=== PATIENT | female | born 1955 | race Caucasian/White ===

== ENCOUNTER 2020-03-28 13:28 | Outpatient (REF) | payer MEDICARE, MEDICAID, SELFPAY ==
--- NOTE | 2020-03-28 13:31 | XR_ITS ---
EXAMINATION: XR ABDOMEN COMPLETE CLINICAL INDICATION: Right upper quadrant pain COMPARISON: None TECHNIQUE: 2 views of the abdomen. FINDINGS: There is a nonspecific bowel gas pattern with scattered air-fluid levels in nondilated bowel. There is no evidence of free air. There are surgical clips in the right upper quadrant from previous cholecystectomy. There are no calcifications. There are degenerative changes of the lower lumbar spine. XR/XR abdomen 3V IMPRESSION: Nonspecific bowel gas pattern with air-fluid levels in nondilated small and large bowel.
== END 2020-03-28 13:29 | disposition home or self-care (01) ==
LOC: HO.XRAY 13:28
PROVIDERS: PCP Internal Medicine; Visit Provider Nurse Practitioner Family
DX: R10.11 Right upper quadrant pain (principal)
CPT/HCPCS: 74021

== ENCOUNTER 2020-03-29 15:21 | Emergency (ER) | payer MEDICARE, MEDICAID, SELFPAY ==
[2020-03-29] VITALS (7 sets, daily range): BP systolic 107–136; BP diastolic 58–82; PULSE 90–100; RESP 16–20; TEMP 37; O2SAT 94–100; BMI 30.7
--- NOTE | 2020-03-29 | ECG_ITS ---
Test Reason : SYNCOPE Blood Pressure : / mmHG Vent. Rate : 092 BPM Atrial Rate : 092 BPM P-R Int : 152 ms QRS Dur : 084 ms QT Int : 372 ms P-R-T Axes : 037 039 040 degrees QTc Int : 460 ms Normal sinus rhythm Nonspecific T wave abnormality Borderline ECG No previous ECGs available Referred By: Generic ED Physician Electronically Signed By:FRANTZ COSME MD
[2020-03-29 15:48] LABS: Glucose, Whole Blood 173 mg/dL (60-115)
[2020-03-29 16:07] LABS: MANUAL DIFF FLAG NO
[2020-03-29 16:08] LABS: Basophils Absolute Auto 0.1 X10*3/uL (0.0-0.2); Basophils Percent Auto 0.8 % (0-2); Eosinophils Absolute Auto 0.2 X10*3/uL (0.0-0.4); Eosinophils Percent Auto 1.9 % (0-4); Hematocrit 36.7 % (37-47); Hemoglobin 12.3 g/dl (12.0-16.0); Imm Gran Abs Auto 0.04 X10*3/uL (0.00-0.03); Imm Gran Pct Auto 0.4 % (0.0-0.4); Lymphocytes Absolute Auto 3.1 X10*3/uL (1.2-4.9); Lymphocytes Percent Auto 33.3 % (20-40); Mean Corpuscular HGB Conc 33.5 g/dl (31.0-35.0); Mean Corpuscular Hemoglobin 29.5 pg (27.0-33.0); Mean Platelet Volume 8.9 fL (9.4-12.3); Monocytes Absolute Auto 0.6 X10*3/uL (0.1-1.2); Monocytes Percent Auto 6.8 % (2-11); Neutrophils Absolute Auto 5.2 X10*3/uL (2.0-8.3); Neutrophils Percent Auto 56.8 % (45-73); Platelet Count 323 X10*3/uL (160-400); Red Blood Count 4.17 X10*6/uL (4.20-5.50); Red Cell Distribution Width 13.2 % (11.0-16.0); White Blood Count 9.2 X10*3/uL (4.8-10.8)
[2020-03-29 16:34] LABS: Anion Gap 17 (12-20); Blood Urea Nitrogen 10 mg/dL (9-16); Calcium 9.4 mg/dL (8.4-10.2); Carbon Dioxide 25 mmol/L (22-29); Chloride 93 mmol/L (96-108); Creatinine Clr Calc Pharmacy 78.9; Estimated Glomerular Filt Rate > 60; Glucose Random 180 mg/dL (60-115); Potassium 3.3 mmol/l (3.3-5.1); Sodium 132 mmol/L (135-145)
--- NOTE | 2020-03-29 16:36 | ED.SYNCOPE ---
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 States she was walking and collapsed to ground unsure if hit her her and ? loc she is not sure. There was no dizziness, olmstead, chest pain, n/v/d. MD complaint: almost passed out Onset (ago): minute(s) -: second(s) Prodromal symptoms: none Witnessed: Yes - by Bystander Context: other (walking to [place] ) Injuries sustained associated with event: none Current symptoms: none Treatments prior to arrival: none Related Data Home Medications Medication Instructions Recorded Confirmed amlodipine 5 mg tablet 5 mg PO DAILY 03/07/20 03/28/20 clonazepam 0.5 mg tablet 0.5 mg PO BID 03/07/20 03/28/20 hydrochlorothiazide 50 mg tablet 50 mg PO DAILY 03/07/20 03/28/20 lisinopril 20 mg tablet 20 mg PO DAILY 03/07/20 03/28/20 meclizine 25 mg tablet 25 mg PO DAILY PRN 03/07/20 03/28/20 metformin 1,000 mg tablet 1,000 mg PO BID 03/07/20 03/28/20 pantoprazole 40 mg tablet,delayed 40 mg PO DAILY 03/07/20 03/28/20 release pioglitazone 15 mg tablet 15 mg PO DAILY 03/07/20 03/28/20 rosuvastatin 40 mg tablet 40 mg PO DAILY 03/07/20 03/28/20 venlafaxine 150 mg 150 mg PO DAILY 03/07/20 03/28/20 capsule,extended release 24 hr Previous Rx's Medication Instructions Recorded blood sugar diagnostic #50 ea 03/07/20 zolpidem 10 mg tablet 10 mg PO BEDTIME 30 Days #30 tab 03/07/20 cetirizine 10 mg capsule 10 mg PO DAILY PRN 30 Days #30 cap 03/28/20 omeprazole 20 mg capsule,delayed 20 mg PO DAILY 30 Days #30 cap 03/28/20 release lidocaine 1 patch TOPICAL Q24H PRN #10 ea 03/29/20 Allergies Allergy/AdvReac Type Severity Reaction Status Date / Time escitalopram Allergy Unknown headache Verified 03/29/20 15:36 gabapentin Allergy Unknown rash Verified 03/29/20 15:36 pravastatin Allergy Unknown stomach Verified 03/29/20 15:36 pain Metoprolol Tartrate Allergy Unknown dizziness Uncoded 12/16/19 00:00 propanolol Allergy Unknown dyspnea Uncoded 12/16/19 00:00 Review of Systems Review of Systems: Constitutional: No Weight loss, No Fever, No Chills, No Night Sweats, No Fatigue, No Malaise ENT/Mouth: No Hearing loss, No Ear Pain, No Nasal Congestion, No Sinus Pain, No Hoarseness, No sore throat, No Rhinorrhea, No Swallowing Difficulty Eyes: No Eye Pain, No Swelling, No Redness, No Foreign Body, No Discharge, No Vision Changes Cardiovascular: No Chest Pain, No SOB, No Dyspnea on Exertion, No Orthopnea, No Edema, No Palpitations Respiratory: No Cough, No Sputum, No Wheezing, No Smoke Exposure, No Dyspnea Gastrointestinal: No Nausea, No Vomiting, No Diarrhea, No Constipation, No abdominal Pain, No Hematochezia, No Melena Genitourinary: no irregular bleeding, No Dysuria, No Urinary Frequency, No Hematuria, No Urinary Incontinence, No Urgency, No Flank Pain, No Urinary Flow Changes, No Hesitancy Musculoskeletal: As noted HPI Skin: No Skin Lesions, No rash Neuro: No Weakness, No Numbness, No Paresthesias, No Loss of Consciousness, No Dizziness, No Headache Psych: No Anxiety/Panic, No Depression, No SI/HI/AH/VH, No Social Issues Heme/Lymph: No Bruising, No Bleeding,No Lymphadenopathy Endocrine: No Polyuria, No Polydipsia, No Temperature Intolerance Yes all other systems are reviewed and are negative [facility] Past Medical History Attestation statement: The following information was validated with the patient. Medical History (Updated 03/29/20 @ 21:15 by Stuart Gipson NP) Arthritis Cholecystectomy planned Diabetes mellitus Hypertension Insomnia Lower back pain UTI (urinary tract infection) Surgical History (Updated 03/29/20 @ 15:35 by Tere Rabago) History of appendectomy Social History Social History Alcohol intake: never Smoking Status: Never smoker Use of substances other than those prescribed or required for medical reasons: No Advance Directives: No Advance Directives Information Provided: Yes Physical Exam Vital Signs: Vital Signs: Vital Signs Temp Pulse Resp BP Pulse Ox 03/29/20 20:10 98.6 F 94 20 107/58 L 94 03/29/20 18:28 100 116/63 03/29/20 18:27 90 117/62 03/29/20 18:26 94 111/61 03/29/20 18:00 99 17 111/61 96 03/29/20 16:47 91 18 125/65 97 03/29/20 15:29 98.6 F 96 16 131/68 99 Body Mass Index 30.7 reviewed NIH score 0 No focal neuro findings AOX3 Const: General: cooperative and healthy appearing; No acute distress or intoxicated appearing Nutritional Appearance: average body habitus Orientation/consciousness: patient oriented x3 HENMT: Head: Yes normal to inspection Ears: hearing grossly normal bilaterally Eyes: General: appearance normal, both eyes and all related structures Visual Bauer: normal visual bauer by confrontation Neck: Neck: Yes normal visual inspection, No positive Brudzinski's sign, No positive Kernig's sign and No tender Thyroid: Thyroid normal Chest: Chest palpation & inspection: normal inspection of the chest Resp: Effort & Inspection: normal respiratory effort Cardio: Jugular venous distension: no JVD GI: Inspection: Yes normal to inspection Percussion: Yes normal to percussion Auscultation: normal bowel sounds : General: Yes no CVA tenderness Back/Spine/Pelvis: Back: no CVA tenderness Skin: General skin exam: no rashes or lesions noted Neuro: General: patient oriented x3 Extrem: General: Yes normal to inspection Course Course Course Narrative: Ortho neg / work up reassuring OOb ambulatory with steady gait A/p vasovagal near syncope s/t back pain acute on chronic No LBP red flags Will d/c home c f/u MDM - Syncope Differential Diagnosis Differential diagnosis: Likely syncope due to orthostatic hypotension, vasovagal syncope and dehydration; Unlikely complete atrioventricular block, subarachnoid hemorrhage and pulmonary embolism Medical Records Attestation: I reviewed the patient's medical records. Lab Data Attestation: I reviewed the patient's lab results. Result diagrams: 03/29/20 15:52 03/29/20 15:52 Labs: Lab Results 03/29/20 03/29/20 03/29/20 Range/Units 15:44 15:52 15:52 WBC 9.2 (4.8-10.8) X10*3/uL RBC 4.17 L (4.20-5.50) X10*6/uL Hgb 12.3 (12.0-16.0) g/dl Hct 36.7 L (37-47) % MCV 88.0 (80-98) fL MCH 29.5 (27.0-33.0) pg MCHC 33.5 (31.0-35.0) g/dl RDW 13.2 (11.0-16.0) % Plt Count 323 (160-400) X10*3/uL MPV 8.9 L (9.4-12.3) fL Immature Gran % (Auto) 0.4 (0.0-0.4) % Neut % (Auto) 56.8 (45-73) % Lymph % (Auto) 33.3 (20-40) % [place] % (Auto) 6.8 (2-11) % Eos % (Auto) 1.9 (0-4) % Baso % (Auto) 0.8 (0-2) % Lymph # (Auto) 3.1 (1.2-4.9) X10*3/uL [place] # (Auto) 0.6 (0.1-1.2) X10*3/uL Eos # (Auto) 0.2 (0.0-0.4) X10*3/uL Baso # (Auto) 0.1 (0.0-0.2) X10*3/uL Abs Immat Gran (auto) 0.04 H (0.00-0.03) X10*3/uL Absolute Neuts (auto) 5.2 (2.0-8.3) X10*3/uL Absolute Nucleated RBC 0.000 (0.0-0.012) X10*3/uL Nucleated RBC % (auto) 0.0 (0.0-0.2) /100WBC Hold Purple Top D-Dimer < 200 NG/ML Hold Blue Top SEE NOTE Sodium (135-145) mmol/L Potassium (3.3-5.1) mmol/l Chloride (96-108) mmol/L Carbon Dioxide (22-29) mmol/L Anion Gap (12-20) BUN (9-16) mg/dL Creatinine (0.5-1.4) mg/dL Estim Creat Clear Calc Estimated GFR POC Glucose 173 H (60-115) mg/dL Random Glucose (60-115) mg/dL Calcium (8.4-10.2) mg/dL Total Bilirubin (0.0-1.0) mg/dL Direct Bilirubin (0.0-0.5) mg/dL AST (5-31) U/L ALT (0-31) U/L Alkaline Phosphatase (39-117) U/L Troponin I High Sens (<3.5-17.0) ng/L Total Protein (6.5-8.0) g/dL Albumin (3.5-5.0) g/dL Lipase (8-78) U/L Urine Color Urine Appearance Urine pH (5.0-8.0) Ur Specific [place] (1.005-1.025) Urine Protein (NEG-TRACE) MG/DL Urine Glucose (UA) (NEG) MG/DL Urine Ketones (NEG) MG/DL Urine Blood (NEG) Urine Nitrite (NEG) Ur Leukocyte Esterase (NEG) Urine RBC (0) /HPF Urine WBC (0-4) /HPF Ur Squamous Epith Cells /LPF Urine Bacteria /LPF Coronavirus (PCR) (Negative) 03/29/20 03/29/20 03/29/20 Range/Units 15:52 15:52 15:52 WBC (4.8-10.8) X10*3/uL RBC (4.20-5.50) X10*6/uL Hgb (12.0-16.0) g/dl Hct (37-47) % MCV (80-98) fL MCH (27.0-33.0) pg MCHC (31.0-35.0) g/dl RDW (11.0-16.0) % Plt Count (160-400) X10*3/uL MPV (9.4-12.3) fL Immature Gran % (Auto) (0.0-0.4) % Neut % (Auto) (45-73) % Lymph % (Auto) (20-40) % Bethel % (Auto) (2-11) % Eos % (Auto) (0-4) % Baso % (Auto) (0-2) % Lymph # (Auto) (1.2-4.9) X10*3/uL [place] # (Auto) (0.1-1.2) X10*3/uL Eos # (Auto) (0.0-0.4) X10*3/uL Baso # (Auto) (0.0-0.2) X10*3/uL Abs Immat Gran (auto) (0.00-0.03) X10*3/uL Absolute Neuts (auto) (2.0-8.3) X10*3/uL Absolute Nucleated RBC (0.0-0.012) X10*3/uL Nucleated RBC % (auto) (0.0-0.2) /100WBC Hold Purple Top SEE NOTE D-Dimer NG/ML Hold Blue Top Sodium 132 L (135-145) mmol/L Potassium 3.3 (3.3-5.1) mmol/l Chloride 93 L (96-108) mmol/L Carbon Dioxide 25 (22-29) mmol/L Anion Gap 17 (12-20) BUN 10 (9-16) mg/dL Creatinine 0.67 (0.5-1.4) mg/dL Estim Creat Clear Calc 78.9 Estimated GFR > 60 POC Glucose (60-115) mg/dL Random Glucose 180 H (60-115) mg/dL Calcium 9.4 (8.4-10.2) mg/dL Total Bilirubin 0.3 (0.0-1.0) mg/dL Direct Bilirubin 0.2 (0.0-0.5) mg/dL AST 23 (5-31) U/L ALT 18 (0-31) U/L Alkaline Phosphatase 64 (39-117) U/L Troponin I High Sens < 3.5 (<3.5-17.0) ng/L Total Protein 7.1 (6.5-8.0) g/dL Albumin 4.8 (3.5-5.0) g/dL Lipase 39 (8-78) U/L Urine Color Urine Appearance Urine pH (5.0-8.0) Ur Specific [place] (1.005-1.025) Urine Protein (NEG-TRACE) MG/DL Urine Glucose (UA) (NEG) MG/DL Urine Ketones (NEG) MG/DL Urine Blood (NEG) Urine Nitrite (NEG) Ur Leukocyte Esterase (NEG) Urine RBC (0) /HPF Urine WBC (0-4) /HPF Ur Squamous Epith Cells /LPF Urine Bacteria /LPF Coronavirus (PCR) (Negative) 03/29/20 03/29/20 Range/Units 16:47 18:37 WBC (4.8-10.8) X10*3/uL RBC (4.20-5.50) X10*6/uL Hgb (12.0-16.0) g/dl Hct (37-47) % MCV (80-98) fL MCH (27.0-33.0) pg MCHC (31.0-35.0) g/dl RDW (11.0-16.0) % Plt Count (160-400) X10*3/uL MPV (9.4-12.3) fL Immature Gran % (Auto) (0.0-0.4) % Neut % (Auto) (45-73) % Lymph % (Auto) (20-40) % [place] % (Auto) (2-11) % Eos % (Auto) (0-4) % Baso % (Auto) (0-2) % Lymph # (Auto) (1.2-4.9) X10*3/uL [place] # (Auto) (0.1-1.2) X10*3/uL Eos # (Auto) (0.0-0.4) X10*3/uL Baso # (Auto) (0.0-0.2) X10*3/uL Abs Immat Gran (auto) (0.00-0.03) X10*3/uL Absolute Neuts (auto) (2.0-8.3) X10*3/uL Absolute Nucleated RBC (0.0-0.012) X10*3/uL Nucleated RBC % (auto) (0.0-0.2) /100WBC Hold Purple Top D-Dimer NG/ML Hold Blue Top Sodium (135-145) mmol/L Potassium (3.3-5.1) mmol/l Chloride (96-108) mmol/L Carbon Dioxide (22-29) mmol/L Anion Gap (12-20) BUN (9-16) mg/dL Creatinine (0.5-1.4) mg/dL Estim Creat Clear Calc Estimated GFR POC Glucose (60-115) mg/dL Random Glucose (60-115) mg/dL Calcium (8.4-10.2) mg/dL Total Bilirubin (0.0-1.0) mg/dL Direct Bilirubin (0.0-0.5) mg/dL AST (5-31) U/L ALT (0-31) U/L Alkaline Phosphatase (39-117) U/L Troponin I High Sens (<3.5-17.0) ng/L Total Protein (6.5-8.0) g/dL Albumin (3.5-5.0) g/dL Lipase (8-78) U/L Urine Color YELLOW Urine Appearance CLEAR Urine pH 7.0 (5.0-8.0) Ur Specific [place] 1.015 (1.005-1.025) Urine Protein NEG (NEG-TRACE) MG/DL Urine Glucose (UA) NEG (NEG) MG/DL Urine Ketones NEG (NEG) MG/DL Urine Blood TRACE (NEG) Urine Nitrite NEG (NEG) Ur Leukocyte Esterase NEG (NEG) Urine RBC 1-4 (0) /HPF Urine WBC 1-4 (0-4) /HPF Ur Squamous Epith Cells 1+ /LPF Urine Bacteria 1+ /LPF Coronavirus (PCR) NEGATIVE (Negative) ECG Data Interpretation: NSR No st sig changes HR 92 WA int WNL Discharge Plan Discharge Clinical Impression: Lower back pain, Vasovagal syncope Patient Disposition: Home, Self-Care Instructions: Near Syncope (ED), Back Pain (ED) Prescriptions: New lidocaine 4 % adhesive patch,medicated 1 patch topical Q24H PRN (Reason: pain) Qty: 10 RF: 0 No Action zolpidem 10 mg tablet 10 mg PO BEDTIME 30 Days Qty: 30 RF: 0 (DME) FreeStyle Test Strip See Rx Instructions .ROUTE .MEDSUPPLY Qty: 50 RF: 11 omeprazole 20 mg capsule,delayed release(DR/EC) 20 mg PO DAILY 30 Days Qty: 30 RF: 0 Zyrtec 10 mg capsule 10 mg PO DAILY PRN (Reason: allergy symptoms) 30 Days Qty: 30 RF: 0 amlodipine 5 mg tablet 5 mg PO DAILY RF: 0 rosuvastatin 40 mg tablet 40 mg PO DAILY RF: 0 clonazepam 0.5 mg tablet 0.5 mg PO BID RF: 0 lisinopril 20 mg tablet 20 mg PO DAILY RF: 0 meclizine 25 mg tablet 25 mg PO DAILY PRNRF: 0 venlafaxine 150 mg capsule,extended release 24hr 150 mg PO DAILY RF: 0 hydrochlorothiazide 50 mg tablet 50 mg PO DAILY RF: 0 pantoprazole 40 mg tablet,delayed release (DR/EC) 40 mg PO DAILY RF: 0 metformin 1,000 mg tablet 1,000 mg PO BID RF: 0 pioglitazone 15 mg tablet 15 mg PO DAILY RF: 0 Referrals: Bola Ramsey MD [Primary Care Provider] - 3 days
--- NOTE | 2020-03-29 16:39 | XR_ITS ---
EXAMINATION: XR CHEST CLINICAL INFORMATION: Syncope COMPARISON: Chest x-ray 02/11/2020 TECHNIQUE: Frontal portable view of the chest was obtained. 6:47 PM FINDINGS: No significant abnormality is noted involving the heart, lungs, mediastinum, bony thorax or soft tissues. XR/XR chest 1V IMPRESSION: Unremarkable examination.
--- NOTE | 2020-03-29 16:40 | CT_ITS ---
EXAMINATION: CT HEAD WITHOUT CONTRAST CT CERVICAL SPINE WITHOUT CONTRAST CLINICAL INFORMATION: Syncope. Fall. COMPARISON: None. TECHNIQUE: Imaging was performed from the skull base to vertex without intravenous administration of contrast. In addition, helical noncontrast CT imaging was acquired through the cervical spine and source images were reviewed along with axial reconstructions and sagittal and coronal MPRs. [This CT examination was performed using dose optimization techniques as appropriate, variously including the following: *Automated exposure control *Adjustment of mA and/or kV according to patient size (this includes techniques or standardized protocols for targeted exams where dose is matched to indication/reason for exam; i.e. extremities or head) *Use of iterative reconstruction technique] DLP: 1190 mGy-cm FINDINGS: HEAD: No intracranial mass, hemorrhage, or midline shift is visualized. The ventricles and sulci are age-appropriate. No extra-axial collections are identified. The paranasal sinuses and mastoid air cells are well aerated. CERVICAL SPINE: There is no evidence of acute cervical spine fracture. Vertebral bodies remain normal in height. Cervical vertebrae have normal alignment. There is multilevel degenerative spondylosis of the cervical spine with disc height narrowing and endplate spurs and facet joint arthrosis No pre- or paravertebral soft tissue abnormality is identified. Limited assessment of the lung apices is unremarkable. CT/CT cervical spine wo IV con IMPRESSION: 1. No acute intracranial pathology. 2. No CT evidence of acute cervical spine fracture or traumatic subluxation
--- NOTE | 2020-03-29 16:56 | PC.NURSE ---
pt denies need for pain management, states it is tolerable.
[2020-03-29 17:04] LABS: Alanine Aminotransferase 18 U/L (0-31); Albumin Level 4.8 g/dL (3.5-5.0); Alkaline Phosphatase 64 U/L (39-117); Aspartate Amino Transferase 23 U/L (5-31); Bilirubin Direct 0.2 mg/dL (0.0-0.5); Bilirubin Total 0.3 mg/dL (0.0-1.0); Lipase 39 U/L (8-78); Total Protein 7.1 g/dL (6.5-8.0)
[2020-03-29 17:09] LABS: D Dimer < 200 NG/ML
[2020-03-29 17:23] LABS: Troponin-I High Sensitivity < 3.5 ng/L (<3.5-17.0)
[2020-03-29 18:12] LABS: SARS COV2 PCR INHOUSE NEGATIVE (Negative)
--- NOTE | 2020-03-29 18:42 | CT_ITS ---
EXAMINATION: CT ABDOMEN AND PELVIS WITHOUT CONTRAST CLINICAL INFORMATION: Right-sided abdominal and flank pain COMPARISON: KUB 03/28/2020 TECHNIQUE: Multidetector volumetric imaging was performed from the superior aspect of the liver through the pubic symphysis. Sagittal and coronal reformatted images were obtained on the technologist's workstation. This CT examination was performed using dose optimization techniques as appropriate, variously including the following: *Automated exposure control *Adjustment of mA and/or kV according to patient size (this includes techniques or standardized protocols for targeted exams where dose is matched to indication/reason for exam; i.e. extremities or head) *Use of iterative reconstruction technique DLP: 542 mGy-cm FINDINGS: Visualized lung bases demonstrate minimal dependent atelectasis. The liver demonstrates normal size, contour and attenuation. The gallbladder is surgically absent. The pancreas, spleen and adrenal glands are unremarkable. No renal calculi or hydronephrosis of either kidney. 3 cm left renal cyst. Debris-filled stomach. Normal caliber loops of small and large bowel. Mild joce mesentery of the central left abdomen with associated mildly prominent lymph nodes. Nonaneurysmal abdominal aorta. No retroperitoneal lymphadenopathy. The bladder is well-distended and normal in appearance. The uterus is surgically absent. No gross free pelvic fluid. No inguinal lymphadenopathy. Diffuse osteopenia. Moderate diffuse degenerative changes of the spine. CT/CT abdomen pelvis wo IV con IMPRESSION: -No renal calculi or hydronephrosis of either kidney. -3 cm left renal cyst. -Mild joce mesentery of the central left abdomen with associated mildly prominent lymph nodes. 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 Clinical correlation recommended.
--- NOTE | 2020-03-29 18:43 | PC.NURSE ---
ambulated to bathroom to provide urine sample, c/o slight dizziness and wavering gait.
[2020-03-29 18:44] LABS: Glucose Urine UA NEG (NEG); Leukocyte Esterase Urine NEG (NEG); Nitrite Urine NEG (NEG); Specific Gravity - Urine 1.015 (1.005-1.025); Urine Blood TRACE (NEG); Urine Ketones NEG (NEG); Urine Protein NEG (NEG-TRACE)
[2020-03-29 18:51] LABS: Appearance Urine CLEAR; Color Urine YELLOW
[2020-03-29 18:55] LABS: Bacteria Urine 1+ /LPF; Squamous Epithelial Cell Urine 1+ /LPF
== END 2020-03-29 21:38 | disposition home or self-care (01) ==
PROVIDERS: Nurse Practitioner Primary Care; Emergency Provider Internal Medicine; PCP Internal Medicine
DX: R55 Syncope and collapse (principal); M54.5 Low back pain; R10.9 Unspecified abdominal pain; Z79.899 Other long term (current) drug therapy; Z20.828 Contact with and (suspected) exposure to other viral communicable diseases
CPT/HCPCS: 36415; 70450; 71045; 72125; 74176; 80048; 80076; 81001; 82947; 83690; 84484; 85025; 85379; 87635; 93005; 99284; 99285

== ENCOUNTER 2020-04-11 08:02 | Outpatient (REF) | payer MEDICARE, MEDICAID, SELFPAY ==
[2020-04-11 10:25] LABS: Alanine Aminotransferase 20 U/L (0-31); Albumin Level 4.9 g/dL (3.5-5.0); Alkaline Phosphatase 74 U/L (39-117); Anion Gap 15 (12-20); Aspartate Amino Transferase 19 U/L (5-31); Bilirubin Total 0.3 mg/dL (0.0-1.0); Blood Urea Nitrogen 6 mg/dL (9-16); Calcium 10.1 mg/dL (8.4-10.2); Carbon Dioxide 27 mmol/L (22-29); Chloride 100 mmol/L (96-108); Cholesterol 122 mg/dL; Estimated Glomerular Filt Rate > 60; Glucose Fasting 126 mg/dL (60-99); HDL Cholesterol 70 mg/dL; LDL Cholesterol Calculated 39 mg/dl; Potassium 3.6 mmol/l (3.3-5.1); Sodium 138 mmol/L (135-145); Total Protein 7.2 g/dL (6.5-8.0); Triglycerides 68 mg/dL
== END 2020-04-11 08:03 | disposition home or self-care (01) ==
LOC: HO.LAB 08:02
PROVIDERS: PCP Internal Medicine; Visit Provider Internal Medicine
DX: E11.9 Type 2 diabetes mellitus without complications (principal)
CPT/HCPCS: 80053; 80061

== ENCOUNTER 2020-06-27 14:44 | Outpatient (REF) | payer MEDICARE, MEDICAID, SELFPAY ==
--- NOTE | 2020-06-27 | MM_ITS ---
EXAMINATION: MM SCREENING DIGITAL BREAST TOMOSYNTHESIS, BILATERAL CLINICAL INFORMATION: Screening. Asymptomatic. The lifetime risk of breast cancer based on the Tyrer-Cuzick Model is 4%. COMPARISON: Mammography: 06/17/2019, 06/12/2018, 05/31/2017 TECHNIQUE: Digital breast tomosynthesis is performed in both the craniocaudal and mediolateral oblique views along with computer-aided detection (CAD). Synthesized 2D images are generated from the tomosynthesis. FINDINGS: There are scattered areas of fibroglandular density (ACR BI-RADS breast composition Category b). Parenchymal pattern is similar to prior studies. There are scattered bilateral asymmetries similar to prior exams. No developing density or interval architectural abnormality demonstrated. There are scattered bilateral benign round and vascular calcifications again noted. MM/MM tomosynthesis screening BI IMPRESSION: No significant changes from prior studies. ASSESSMENT: BI-RADS 2: Benign RECOMMENDATION: Routine annual mammography screening. This patient's information was entered into a reminder system with a target due date for their next mammogram.
== END 2020-06-27 14:45 | disposition home or self-care (01) ==
LOC: HO.MAMMO 14:44
PROVIDERS: Visit Provider Internal Medicine
DX: Z12.31 Encounter for screening mammogram for malignant neoplasm of breast (principal)
CPT/HCPCS: 77063; 77067

== ENCOUNTER 2021-02-09 07:23 | Outpatient (REF) | payer MEDICARE, MEDICAID, SELFPAY | END 2021-02-09 07:24 | disposition home or self-care (01) | LOC: HO.HOSX 07:23 | PROVIDERS: Visit Provider Physician Assistant | DX: Z13.89 Encounter for screening for other disorder (principal) ==

== ENCOUNTER 2021-04-19 11:02 | Outpatient (REF) | payer MEDICARE, MEDICAID, SELFPAY ==
--- NOTE | ~2021-04-19 | XR_ITS ---
EXAMINATION: XR CERVICAL SPINE CLINICAL INFORMATION: Cervicalgia COMPARISON: CT cervical spine from 03/29/2020 TECHNIQUE: 6 views of the cervical spine were obtained. FINDINGS: The craniocervical junction is normal. There is degenerative osseous spurring at the atlantodental articulation. The cervical vertebra are normal in height. No acute fracture or prevertebral soft tissue swelling. There is multilevel facet arthropathy, including involvement of right-sided facet joints at C2-C3 and C3-C4. Chronic, 0.2 cm degenerative anterolisthesis of C3 on C4. Otherwise, cervical vertebra have normal alignment. Degenerative disc space loss and vertebral osteophyte formation at C4-C5, C5-C6 and C6-C7. Multilevel uncovertebral joint hypertrophy. The oblique views show high-grade left-sided foraminal stenosis at C4-C5, C5-C6 and C6-C7. Also, multilevel right-sided neural foraminal stenosis is present. Lung apices are unremarkable. XR/XR cervical spine 4V IMPRESSION: * No acute abnormalities in the cervical spine compared to 03/29/2020. * There is multilevel facet arthropathy, including C3-C4, with chronic mild degenerative anterolisthesis of C3 on C4. Otherwise, cervical vertebra have normal alignment. * Chronic degenerative disc disease is present at C4-C5, C5-C6 and C6-C7. Also, multilevel bilateral neural foraminal stenosis is present.
== END 2021-04-19 11:03 | disposition home or self-care (01) ==
LOC: HO.XRAY 11:02
PROVIDERS: Absent Provider Emergency Medicine; PCP Internal Medicine; Visit Provider Physician Assistant
DX: M54.2 Cervicalgia (principal); M67.40 Ganglion, unspecified site
CPT/HCPCS: 72050; 99202

== ENCOUNTER 2021-05-10 13:15 | Outpatient (REF) | payer MEDICARE, MEDICAID, SELFPAY | END 2021-05-10 13:16 | disposition home or self-care (01) | LOC: HO.MAMMO 13:15 | PROVIDERS: PCP Internal Medicine; Visit Provider Internal Medicine | DX: Z13.89 Encounter for screening for other disorder (principal) ==

== ENCOUNTER 2021-10-13 13:06 | Outpatient (REF) | payer MEDICARE, MEDICAID, SELFPAY ==
--- NOTE | ~2021-10-13 | MM_ITS ---
EXAMINATION: MM SCREENING DIGITAL BREAST TOMOSYNTHESIS, BILATERAL CLINICAL INFORMATION: Screening. Asymptomatic. The lifetime risk of breast cancer based on the Tyrer-Cuzick Model is 4%. COMPARISON: Mammography: 06/27/2020, 06/17/2019, 06/12/2018 TECHNIQUE: Digital breast tomosynthesis is performed in both the craniocaudal and mediolateral oblique views along with computer-aided detection (CAD). Synthesized 2D images are generated from the tomosynthesis. FINDINGS: There are scattered areas of fibroglandular density (ACR BI-RADS breast composition Category b). There are no significant masses, abnormal calcifications, or other abnormalities. Parenchymal pattern is similar to prior studies. No developing density. There is a stable intramammary node posterior upper outer left breast. MM/MM tomosynthesis screening BI IMPRESSION: No mammographic evidence of malignancy. ASSESSMENT: BI-RADS 1: Negative RECOMMENDATION: Routine annual mammography screening. This patient's information was entered into a reminder system with a target due date for their next mammogram.
== END 2021-10-13 13:07 | disposition home or self-care (01) ==
LOC: HO.MAMMO 13:06
PROVIDERS: PCP Internal Medicine; Visit Provider Internal Medicine
DX: Z12.31 Encounter for screening mammogram for malignant neoplasm of breast (principal)
CPT/HCPCS: 77063; 77067

== ENCOUNTER 2022-06-27 12:15 | Outpatient (REF) | payer MEDICARE, MEDICAID, SELFPAY ==
--- NOTE | ~2022-06-27 | XR_ITS ---
EXAMINATION: XR THORACOLUMBAR SPINE CLINICAL INFORMATION: Pain COMPARISON: None TECHNIQUE: 2 views of the thoracic spine FINDINGS: No acute fracture or subluxation. Slight scoliotic curvature. Vertebral body height and alignment otherwise maintained. Diffuse disc space narrowing with endplate osteophytes throughout. The paravertebral soft tissues are unremarkable. The visualized lungs are clear. XR/XR thoracic spine 2V IMPRESSION: Moderate degenerative changes throughout the thoracic spine.
--- NOTE | ~2022-06-27 | XR_ITS ---
EXAMINATION: XR RIBS, BILATERAL CLINICAL INFORMATION: Bilateral back pain . Left rib pain. COMPARISON: 03/29/2020 TECHNIQUE: 3 views of the bilateral ribs were obtained. PA view of the chest. FINDINGS: Lungs are clear. No consolidation, pneumothorax, or pleural effusion. The cardiomediastinal silhouette and pulmonary vasculature are normal. Right upper quadrant surgical clips. Osseous structures are unremarkable. Marker overlies the lower left ribs. Ribs are intact. No fractures are identified. XR/XR ribs BI min 4V w CXR1V IMPRESSION: Clear lungs. No focal rib abnormality identified.
== END 2022-06-27 12:16 | disposition home or self-care (01) ==
LOC: HO.XRAY 12:15
PROVIDERS: Absent Provider Internal Medicine Geriatric Medicine; PCP Internal Medicine Geriatric Medicine; Visit Provider Registered Nurse
DX: M54.6 Pain in thoracic spine (principal); R07.81 Pleurodynia
CPT/HCPCS: 71111; 72070

== ENCOUNTER 2022-08-21 12:03 | Outpatient (REF) | payer MEDICARE, MEDICAID, SELFPAY ==
--- NOTE | ~2022-08-21 | US_ITS ---
EXAMINATION: US ABDOMEN COMPLETE CLINICAL INFORMATION: Left upper quadrant and epigastric pain. COMPARISON: CT abdomen and pelvis 03/29/2020. X-ray abdomen 03/28/2020. TECHNIQUE: Real-time imaging of the abdominal viscera. FINDINGS: PANCREAS: Normal. ABDOMINAL AORTA: The proximal, mid, and distal segments are normal in caliber. INFERIOR VENA CAVA: Visualized portions are normal. LIVER: The liver is normal in size. The liver contour is normal. Echogenicity of the liver is increased diffusely. No focal hepatic lesion. There is no intrahepatic biliary duct dilatation seen. GALLBLADDER: Surgically absent. COMMON BILE DUCT: 0.9 cm in diameter. RIGHT KIDNEY: Normal. No hydronephrosis. No renal calculi or focal parenchymal lesions. The kidney measures 9.8 cm in maximum dimension. LEFT KIDNEY: The kidney measures 8.9 cm in maximum dimension. Dominant 3.4 cm simple appearing midpole cyst. A few smaller relatively simple appearing cysts are also noted within the left kidney. No renal calculi or hydronephrosis. SPLEEN: Normal. The spleen measures 7.6 cm in maximum dimension. FREE FLUID: None. US/US abdomen complete IMPRESSION: 1. Diffusely increased liver echogenicity. This is a nonspecific finding but most suggestive of hepatic steatosis. Correlation with liver enzymes recommended. 2. Relatively simple appearing left renal cysts.
[2022-08-21 13:02] LABS: MANUAL DIFF FLAG NO
[2022-08-21 13:17] LABS: Basophils Absolute Auto 0.1 X10*3/uL (0.0-0.2); Basophils Percent Auto 0.8 % (0-2); Eosinophils Absolute Auto 0.3 X10*3/uL (0.0-0.4); Eosinophils Percent Auto 3.5 % (0-4); Hematocrit 38.5 % (37.0-47.0); Hemoglobin 13.1 g/dl (12.0-16.0); Imm Gran Abs Auto 0.02 X10*3/uL (0.00-0.03); Imm Gran Pct Auto 0.3 % (0.0-0.4); Lymphocytes Absolute Auto 3.4 X10*3/uL (1.2-4.9); Mean Corpuscular Hemoglobin 30.1 pg (27.0-33.0); Mean Corpuscular Volume 88.5 fL (80.0-98.0); Mean Platelet Volume 9.2 fL (9.4-12.3); Monocytes Absolute Auto 0.5 X10*3/uL (0.1-1.2); Monocytes Percent Auto 6.4 % (2-11); Neutrophils Absolute Auto 3.5 x10*3/uL (2.0-8.3); Platelet Count 311 X10*3/uL (160-400); Red Blood Count 4.35 X10*6/uL (4.20-5.50); Red Cell Distribution Width 13.2 % (11.0-16.0); White Blood Count 7.8 X10*3/uL (4.8-10.8)
[2022-08-21 14:12] LABS: Alanine Aminotransferase 18 U/L (0-31); Albumin Level 4.8 g/dL (3.5-5.0); Alkaline Phosphatase 70 U/L (39-117); Anion Gap 14 (12-20); Aspartate Amino Transferase 20 U/L (5-31); Bilirubin Total 0.5 mg/dL (0.0-1.0); Blood Urea Nitrogen 6 mg/dL (9-16); Calcium 10.4 mg/dL (8.4-10.2); Carbon Dioxide 29 mmol/L (22-29); Chloride 103 mmol/L (96-108); Cholesterol 136 mg/dL; Estimated Glomerular Filt Rate > 60; Glucose Fasting 122 mg/dL (60-99); HDL Cholesterol 74 mg/dL; LDL Cholesterol Calculated 46 mg/dl; Potassium 4.8 mmol/L (3.3-5.1); Sodium 141 mmol/L (135-145); Total Protein 7.2 g/dL (6.5-8.0); Triglycerides 80 mg/dL
[2022-08-21 14:27] LABS: Estimated Average Glucose 157 mg/dL; Hemoglobin A1c % 7.1 %
[2022-08-21 14:30] LABS: TSH reflex Free T4 1.23 uIU/mL (0.32-4.0)
[2022-08-21 16:06] LABS: Appearance Urine Clear; Color Urine Yellow; Glucose Urine UA Negative (Negative); Leukocyte Esterase Urine Negative (Negative); Nitrite Urine Negative (Negative); PH 7.5 (5.0-9.0); Urine Blood Negative (Negative); Urine Ketones Negative (Negative); Urine Protein Trace mg/dL (Neg-Trace)
[2022-08-21 16:51] LABS: Creatinine Urine 94.84 mg/dL; Microalbum/Creatinine Ratio Ur 55.8 ug/mg cr
== END 2022-08-21 12:04 | disposition home or self-care (01) ==
LOC: HO.US 12:03
PROVIDERS: PCP Internal Medicine; Visit Provider Registered Nurse
DX: R10.12 Left upper quadrant pain (principal); E11.9 Type 2 diabetes mellitus without complications; R10.13 Epigastric pain; E78.00 Pure hypercholesterolemia, unspecified; I10 Essential (primary) hypertension; R30.0 Dysuria; E55.9 Vitamin D deficiency, unspecified
CPT/HCPCS: 36415; 76700; 80053; 80061; 81003; 82043; 82306; 83036; 84443; 85025

== ENCOUNTER 2023-01-15 15:21 | Outpatient (REF) | payer MEDICARE, MEDICAID, SELFPAY ==
--- NOTE | ~2023-01-15 | XR_ITS ---
EXAMINATION: XR LUMBOSACRAL SPINE CLINICAL INFORMATION: Chronic low back pain without sciatica COMPARISON: None available. TECHNIQUE: Three views of the lumbosacral spine. FINDINGS: 5 lumbar type vertebral bodies are identified and are maintained in height. Severe L5-S1 disc space narrowing. Grade 1 anterolisthesis L4 on L5. Possible spondylolyses at same level with facet hypertrophic changes. Pedicles and SI joints within normal limits. Nonspecific bowel pattern, cholecystectomy clips and pelvic phleboliths. XR/XR lumbar spine 2-3V IMPRESSION: L5-S1 disc disease. L4 on L5 grade 1 anterior spondylolisthesis.
== END 2023-01-15 15:22 | disposition home or self-care (01) ==
LOC: HO.HHCX 15:21
PROVIDERS: Visit Provider Registered Nurse
DX: M54.50 Low back pain, unspecified (principal)
CPT/HCPCS: 72100

== ENCOUNTER 2023-03-20 09:30 | Outpatient (REF) | payer MEDICARE, MEDICAID, SELFPAY ==
[2023-03-20 11:46] LABS: Anion Gap 16 (12-20); Blood Urea Nitrogen 9 mg/dL (9-16); Carbon Dioxide 25 mmol/L (22-29); Chloride 104 mmol/L (96-108); Estimated Glomerular Filt Rate > 60; Glucose Random 131 mg/dL (60-115); Potassium 3.9 mmol/L (3.3-5.1); Sodium 141 mmol/L (135-145)
[2023-03-20 11:53] LABS: Vitamin D 25-OH Total 54.4 ng/mL (>30)
== END 2023-03-20 09:31 | disposition home or self-care (01) ==
LOC: HO.HHCL 09:30
PROVIDERS: Visit Provider Internal Medicine Geriatric Medicine
DX: E11.9 Type 2 diabetes mellitus without complications (principal); E55.9 Vitamin D deficiency, unspecified; R52 Pain, unspecified
CPT/HCPCS: 36415; 80048; 82306; 82550

== ENCOUNTER 2023-03-27 13:00 | Outpatient (REF) | payer MEDICARE, MEDICAID, SELFPAY | END 2023-03-27 13:01 | disposition home or self-care (01) | LOC: HO.MAMMO 13:00 | PROVIDERS: PCP Internal Medicine Geriatric Medicine; Visit Provider Internal Medicine Geriatric Medicine | DX: Z12.31 Encounter for screening mammogram for malignant neoplasm of breast (principal) | CPT/HCPCS: 77063; 77067 ==

== ENCOUNTER → 2023-03-27 13:30 | Outpatient (BNV) | payer MEDICARE, MEDICAID, SELFPAY | PROVIDERS: PCP Internal Medicine Geriatric Medicine; Visit Provider Radiology Diagnostic Radiology | DX: Z12.31 Encounter for screening mammogram for malignant neoplasm of breast (principal) | CPT/HCPCS: 77063; 77067 ==

== ENCOUNTER 2023-05-02 10:56 | Outpatient (AMB) | payer MEDICARE, MEDICAID, SELFPAY ==
[2023-05-02 10:58] VITALS: BP 108/62; PULSE 107; O2SAT 99; BMI 30.2
--- NOTE | 2023-05-02 11:01 | MHC.PC.OV ---
Vital Signs 05/02/23 10:58 Height 5 ft 2 in Weight 165 lb 0.6 oz BMI 30.2 BP 108/62 Blood Pressure Location Lt brachial Position Sitting Pulse 107 H Pulse Source Pulse Oximeter Pulse Oximetry (%) 99 Oxygen Delivery Method Room Air Intake Visit Reasons: Discuss medication change Distribution Center Assistant Required: Yes Distribution Center Assistant Language: Croatian Allergies propranolol [PROPRANOLOL] Allergy (Intermediate, Verified 05/02/23 11:24) STOMACHE PAIN gabapentin [GABAPENTIN] Allergy (Mild, Verified 05/02/23 11:24) RASH/PRURITUS, rash escitalopram Allergy (Unknown, Verified 05/02/23 11:24) headache metoprolol Allergy (Unknown, Verified 05/02/23 11:24) dizziness pravastatin [PRAVASTATIN] Allergy (Unknown, Verified 05/02/23 11:24) SOB, STOMACH PAIN, stomach pain propanolol Allergy (Unknown, Uncoded 05/02/23 11:24) dyspnea Medication List - Last Reconciled 05/02/23 by SHELBY Joe amlodipine 5 mg PO DAILY 30 days blood sugar diagnostic (FreeStyle Lite Strips) 1 strip miscellaneous DAILY blood sugar diagnostic (FreeStyle Test strips) twice a day cetirizine 10 mg PO DAILY PRN clonazepam 0.5 mg PO BID PRN 15 days hydrochlorothiazide 12.5 mg PO DAILY lancets (TRUEplus Lancets) 33 gauge miscellaneous BID lisinopril 20 mg PO DAILY 30 days meclizine 25 mg PO TID PRN 30 days metformin 1,000 mg PO BID 30 days omeprazole 20 mg PO DAILY rosuvastatin 40 mg PO DAILY venlafaxine ER 150 mg PO DAILY 30 days zolpidem 10 mg PO BEDTIME PRN 30 days Tobacco use date assessed: 05/02/23 Fall risk assessment: No Falls in past year Last assessed Fall Risk: 05/02/23 HPI Discuss medication change HPI Details Patient is a 68-year-old female who presents today to discuss her medications. Last seen by Dr. Ramsey 04/2020. Interested in a Croatian-speaking provider. Medical history significant for insomnia, hypertension, diabetes, GERD, hypercholesterolemia, anxiety, depression. Patient reports that she is not always compliant with her metformin due to GI side effects with abdominal discomfort - she would like to try Trulicity injection instead. Also wondering if her Klonopin can be increased, patient was notified that this provider will not change her Klonopin as she need to see her PCP for this, this provider is willing to try hydroxyzine b.i.d. p.r.n. in addition to Klonopin, patient would like to proceed with hydroxyzine, and also recommended psychiatry and counseling referrals. She reports blood sugar this morning 173. Patient is a Croatian-speaking and Deandra was helping with interpretation. [facility] Medical History Obesity (BMI 30-39.9) GERD without esophagitis Depression Anxiety Pure hypercholesterolemia Benign essential hypertension Unsteady gait Dizziness Headache Cholecystectomy planned Arthritis Diabetes mellitus Lower back pain Hypertension UTI (urinary tract infection) Insomnia Surgical History S/P JESSA (total abdominal hysterectomy) History of laparoscopic cholecystectomy History of appendectomy Family History Father Sepsis Diabetes Mother Diabetes Hypertension Social History Alcohol intake: never Patient Tobacco Use Status: Never used Tobacco Current occupational status: unemployed Current occupation: right handed Cognitive needs: No Hearing needs: No Vision needs: No Questionnaire PHQ-9 Over the last 2 weeks, how often have you been bothered by any of the following problems? 1. Little interest or pleasure in doing things: more than half the days 2. Feeling down, depressed, or hopeless: more than half the days 3. Trouble falling or staying asleep, or sleeping too much: not at all 4. Feeling tired or having little energy: not at all 5. Poor appetite or overeating: several days 6. Feeling bad about yourself - or that you are a failure or have let yourself or your family down: several days 7. Trouble concentrating on things, such as reading the newspaper or watching television: several days 8. Moving or speaking so slowly that other people could have noticed. Or the opposite - being so fidgety or restless that you have been moving around a lot more than usual: several days 9. Thoughts that you would be better off or of hurting yourself in some way: not at all Total score: 8 Depression Screening Interpretation: Positive Depression Screening Follow-up: Existing condition Depression Screening Done: Yes 05468 - PHQ-9 Billing: Yes Source: Developed by Drs. Richard Huertas, Mitul Brown and colleagues, with an educational aubree from [employer]. AUDIT C Alcohol Use Questionnaire (AUDIT-C) 1. How often do you have a drink containing alcohol?: Never 3. How often do you have six or more drinks on one occasion?: Never Total Score: 0 Score Reviewed/Action Taken: No ELMER-7 AMB Questionnaire ELMER-7 Date ELMER - 7 assessed: 05/02/23 Feeling nervous, anxious, or on edge: 1 = Several days Not being able to stop or control worryin = Several days Worrying too much about different things: 1 = Several days Trouble relaxin = Several days Being so restless that it is hard to sit still: 1 = Several days Becoming easily annoyed or irritable: 1 = Several days Feeling afraid as if something awful might happen: 0 = Not at all Total ELMER-7 score (0-4 normal; 5-9 mild; 10-14 moderate; 15-21 severe): 6 Source: Developed by Drs. Richard Huertas, Mitul Brown and colleagues, with an educational aubree from [employer]. ELMER-7 Assessment Billing ELMER-7 Assessment Tool: ELMER-7 Assessment 88775 Review of Systems Const Denies body aches, Denies chills, Denies fever(s) and Denies headache(s) ENT Denies dizziness, Denies otalgia, Denies headache(s), Denies nasal discharge, Denies sinus pain and Denies sore throat Card Denies chest pain, Denies edema, Denies lightheadedness and Denies dyspnea Resp Denies cough, Denies dyspnea and Denies wheezing GI Reports as per HPI, Denies abdominal pain, Reports bloating, Denies constipation, Reports heartburn, Denies diarrhea, Denies nausea and Denies vomiting Musc Denies myalgias Neuro Denies dizziness and Denies headache(s) Psych Reports anxiety and Reports depression Aller/Immun Denies wheezing Physical exam (Primary Care) Vital Signs: Last Vital Signs Pulse 107 H 05/02/23 10:58 BP 108/62 05/02/23 10:58 Pulse Ox 99 05/02/23 10:58 Oxygen Delivery Method Room Air 05/02/23 10:58 BMI result Body Mass Index 30.2 Tobacco/Smoking Status: Tobacco use Status Tobacco use date assessed 05/02/23 05/02/23 11:04 Patient Tobacco Use Status Never used Tobacco 05/02/23 11:03 PHQ-9: PHQ-9 Score PHQ-9: Total score 8 05/02/23 11:37 Depression Screening Interpretation: Positive Depression Screening Follow-up: Existing condition Const General: cooperative and no acute distress Orientation/consciousness: patient oriented x3 HENMT Head: Yes normocephalic and Yes atraumatic Face and sinus: Yes sinuses nontender Mouth: oropharynx normal and moist mucous membranes Throat: Yes posterior oropharynx normal Eyes General: appearance normal, both eyes and all related structures Neck Neck: Yes normal visual inspection and Yes full ROM Resp Effort & Inspection: normal respiratory effort and able to speak in complete sentences Auscultation: clear to auscultation bilaterally, no crackles, no rales, no rhonchi and no wheezes Cardio Rate: regular rate Rhythm: regular rhythm Heart sounds: S1 normal heart sound present, S2 normal heart sound present and no murmurs GI Palpation (GI): Soft to palpation, not firm, nontender, no guarding, not rigid and no hepatosplenomegaly Auscultation: normal bowel sounds Skin General skin exam: no rashes or lesions noted Neuro General: patient oriented x3 Gait exam (Neuro): Normal gait present Extrem General: Yes full ROM and No edema Results AMB Hemoglobin A1c AMB Hemoglobin A1c 8.0 % Last Edit by MOY Ivan on 05/02/23 11:37 Results Reviewed Results Reviewed: Laboratory Last Values Hgb A1c (Clinic) 8.0 % (4.0-6.0) H 05/02/23 11:03 Assessment and Plan Assessment & Plan (1) GERD (gastroesophageal reflux disease): Code(s): K21.9 - Gastro-esophageal reflux disease without esophagitis Qualifiers: Esophagitis presence: without esophagitis Qualified Code(s): K21.9 - Gastro-esophageal reflux disease without esophagitis Plan: Continue omeprazole 20 mg daily Avoid GERD trigger foods (2) Diabetes mellitus: Code(s): E11.9 - Type 2 diabetes mellitus without complications Qualifiers: Diabetes mellitus type: type 2 Diabetes mellitus [employer] insulin use: without nursing home use Diabetes mellitus complication status: without complication Qualified Code(s): E11.9 - Type 2 diabetes mellitus without complications Plan: A1c 8.0 today, goal less than 7 Stop metformin due to GI symptoms Start Trulicity weekly Continue low-carbohydrate diet (3) Hypertension: Code(s): I10 - Essential (primary) hypertension Plan: Goal BP equal or less than 140/90 Continue amlodipine, hydrochlorothiazide, lisinopril Low-sodium diet (4) Insomnia: Code(s): G47.00 - Insomnia, unspecified Qualifiers: Insomnia type: unspecified Qualified Code(s): G47.00 - Insomnia, unspecified Plan: Sleep hygiene Stable with zolpidem at bedtime p.r.n. (5) Pure hypercholesterolemia: Code(s): E78.00 - Pure hypercholesterolemia, unspecified Plan: Continue rosuvastatin Low-cholesterol diet LDL 46 08/2022, goal less than 100 (6) Anxiety: Code(s): F41.9 - Anxiety disorder, unspecified Plan: Psychiatry and counseling referral Continue Klonopin b.i.d. p.r.n.-educated about dependency and memory loss Continue venlafaxine Start hydroxyzine b.i.d. p.r.n.-educated about drowsiness (7) Depression: Code(s): F32.9 - Major depressive disorder, single episode, unspecified Qualifiers: Depression Type: major depressive disorder Major depression recurrence: recurrent Active/Remission status: currently active Major depression episode severity: unspecified Qualified Code(s): F33.9 - Major depressive disorder, recurrent, unspecified Plan: Psychiatry and therapist referral Continue venlafaxine Plan Follow-up with PCP in 3 months or sooner as needed Orders: Orders Lipid Panel Today E11.9 - Type 2 diabetes mellitus without complications Comprehensive [place]. Panel Fast Today E11.9 - Type 2 diabetes mellitus without complications TSH reflex Free T4 Today I10 - Essential (primary) hypertension Referrals Psychiatry Referral F32.9 - Major depressive disorder, single episode, unspecified, F41.9 - Anxiety disorder, unspecified Counseling Referral F32.9 - Major depressive disorder, single episode, unspecified, F41.9 - Anxiety disorder, unspecified Medications: New dulaglutide (Trulicity) 0.75 mg (0.5 mL) subcut QWEEK 2 mL 2RF E11.9 - Type 2 diabetes mellitus without complications hydroxyzine HCl 25 mg PO BID PRN 30 tabs 0RF anxiety F41.9 - Anxiety disorder, unspecified Changed From hydrochlorothiazide 50 mg PO DAILY 30 days 30 tabs 5RF To hydrochlorothiazide 12.5 mg PO DAILY Refilled venlafaxine ER 150 mg PO DAILY 30 days 30 caps 3RF omeprazole 20 mg PO DAILY 30 caps 2RF K21.9 - Gastro-esophageal reflux disease without esophagitis omeprazole 20 mg PO DAILY 30 caps 2RF K21.9 - Gastro-esophageal reflux disease without esophagitis Discontinued metformin Discontinued Reason: Doctor's Order 1,000 mg PO BID 30 days 60 tabs 3RF Coding Level of Care Code Est Pt Level 4 (70148) Diagnoses Gastroesophageal reflux disease without esophagitis K21.9 Esophagitis presence: without esophagitis Type 2 diabetes mellitus without complication, without long-term current use of insulin E11.9 Diabetes mellitus type: type 2 Diabetes mellitus [employer] insulin use: without [employer] use Diabetes mellitus complication status: without complication Hypertension I10 Insomnia, unspecified type G47.00 Insomnia type: unspecified Pure hypercholesterolemia E78.00 Anxiety F41.9 Episode of recurrent major depressive disorder, unspecified depression episode severity F33.9 Depression Type: major depressive disorder Major depression recurrence: recurrent Active/Remission status: currently active Major depression episode severity: unspecified Additional Codes ELMER-7 Assessment Billing - ELMER-7 Assessment Tool: ELMER-7 Assessment 99662 ([id number])
== END 2023-05-02 12:36 | disposition home or self-care (01) ==
PROVIDERS: PCP Nurse Practitioner Family; Visit Provider Nurse Practitioner Family
DX: E11.9 Type 2 diabetes mellitus without complications (principal); F33.9 Major depressive disorder, recurrent, unspecified; K21.9 Gastro-esophageal reflux disease without esophagitis; I10 Essential (primary) hypertension; G47.00 Insomnia, unspecified; E78.00 Pure hypercholesterolemia, unspecified; F41.9 Anxiety disorder, unspecified
CPT/HCPCS: 83036; 96127; 99214

== ENCOUNTER 2023-05-31 12:58 | Emergency (ER) | payer MEDICARE, MEDICAID, SELFPAY ==
[2023-05-31 14:17] VITALS: BP 145/70; PULSE 101; RESP 18; TEMP 36.8; O2SAT 96; BMI 30.5
--- NOTE | 2023-05-31 14:28 | ED.GENADULT ---
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 States she typically has a family member assist her with these injections weekly, however, family member was not available today. Patient attempted to give herself the injection to her right upper arm, but was unsure if the medication was administered. States that while she was looking at the injection device, she accidentally stuck herself in the left index finger. Denies any pain, numbness, tingling to left index finger. She checked her blood sugar immediately at home and it was 116, was unsure if her sugar was going to drop so she ate cereal with scoops of sugar and repeat sugar was over 200. MD complaint: accidental medication administration Onset (ago): hour(s) Location: head and left Associated symptoms: denies other symptoms Treatments prior to arrival: none Related Data Home Medications Medication Instructions Recorded Confirmed hydrochlorothiazide 50 mg tablet 12.5 mg PO DAILY 05/02/23 05/02/23 Previous Rx's Medication Instructions Recorded blood sugar diagnostic (FreeStyle #50 ea 03/07/20 Test strips) blood sugar diagnostic (FreeStyle 1 strip miscellaneous DAILY #100 04/07/20 Lite Strips) strips cetirizine 10 mg tablet 10 mg PO DAILY PRN for allergies 04/25/20 #30 tabs lisinopril 20 mg tablet 20 mg PO DAILY 30 days #30 tabs 05/23/20 rosuvastatin 40 mg tablet 40 mg PO DAILY #30 tabs 07/19/20 amlodipine 5 mg tablet 5 mg PO DAILY 30 days #30 tabs 08/05/20 lancets 33 gauge (TRUEplus Lancets) 33 gauge miscellaneous BID for 02/13/21 diabetes mellitus #100 ea meclizine 25 mg tablet 25 mg PO TID PRN dizziness 30 days 12/22/21 #90 tabs omeprazole 20 mg capsule,delayed 20 mg PO DAILY #30 caps 05/02/23 release venlafaxine 150 mg 150 mg PO DAILY 30 days #30 caps 05/09/23 capsule,extended release 24 hr dulaglutide 0.75 mg/0.5 mL 0.75 mg (0.5 mL) subcut QWEEK #2 mL 05/21/23 [facility] hydroxyzine HCl 25 mg tablet 25 mg PO BID PRN anxiety #30 tabs 05/21/23 clonazepam 0.5 mg tablet 0.5 mg PO BID PRN anxiety 15 days 05/22/23 #30 tabs zolpidem 10 mg tablet 10 mg PO BEDTIME PRN insomnia 30 05/22/23 days #30 tabs Allergies Allergy/AdvReac Type Severity Reaction Status Date / Time propranolol [PROPRANOLOL] Allergy Intermediate STOMACHE Verified 05/31/23 14:16 PAIN gabapentin [GABAPENTIN] Allergy Mild RASH/PRURITUS, Verified 05/31/23 14:16 rash escitalopram Allergy Unknown headache Verified 05/31/23 14:16 metoprolol Allergy Unknown dizziness Verified 05/31/23 14:16 pravastatin [PRAVASTATIN] Allergy Unknown SOB, Verified 05/31/23 14:16 STOMACH PAIN, stomach pain propanolol Allergy Unknown dyspnea Uncoded 05/31/23 14:16 Review of Systems Review of Systems: As per HPI Yes all other systems are reviewed and are negative Constitutional: Constitutional: Reports as per HPI PMFSH Past Medical History Medical History Obesity (BMI 30-39.9) GERD without esophagitis Depression Anxiety Pure hypercholesterolemia Benign essential hypertension Unsteady gait Dizziness Headache Cholecystectomy planned Arthritis Diabetes mellitus Lower back pain Hypertension UTI (urinary tract infection) Insomnia Surgical History S/P JESSA (total abdominal hysterectomy) History of laparoscopic cholecystectomy History of appendectomy Family History Family History Father Sepsis Diabetes Mother Diabetes Hypertension Social History Social History Alcohol intake: never Patient Tobacco Use Status: Never used Tobacco Advance Directives: No Advance Directives Information Provided: No Current occupational status: unemployed Current occupation: right handed Cognitive needs: No Hearing needs: No Vision needs: No Physical Exam ED Vital Signs: Vital Signs - 24 hr 05/31/23 14:17 Temperature 98.3 F Pulse Rate 101 H Respiratory Rate 18 Blood Pressure 145/70 H Pulse Oximetry 96 Oxygen Delivery Method Room Air BMI result Body Mass Index 30.5 Vital signs have been reviewed and appear to be correct. Blood pressure normal. Heart rate normal. Respiratory rate normal. Temperature normal. Oxygen saturation normal. Const General: cooperative, healthy appearing and no acute distress Orientation/consciousness: oriented to person, oriented to place, oriented to time and patient oriented x3 Limitations: no limitations HENMT Head: Yes normocephalic and Yes atraumatic Ears: external ears normal General nose exam: Normal external nose present Face and sinus: Yes face symmetric Mouth: oropharynx normal and moist mucous membranes Throat: Yes uvula midline Eyes Pupils: Equal, round and reactive pupils present Neck Neck: Yes normal visual inspection and Yes supple Resp Effort & Inspection: normal respiratory effort and able to speak in complete sentences Auscultation: clear to auscultation bilaterally Cardio Rate: regular rate Rhythm: regular rhythm Heart sounds: S1 normal heart sound present and S2 normal heart sound present GI Palpation (GI): Soft to palpation and nontender Auscultation: normoactive bowel sounds General: Yes no CVA tenderness Back/Spine/Pelvis Back: no CVA tenderness Skin General skin exam: elasticity normal and turgor normal Neuro General: oriented to person, oriented to place, oriented to time, patient oriented x3, moves all extremities, no focal motor deficits and CN's II-XI intact bilaterally Cranial nerves: Yes Equal, round and reactive pupils present Cognition (Neuro): normal cognition Extrem General: Yes full ROM, Yes no pedal edema and Yes no calf tenderness Left upper extremity: hand (no erythema, swelling ) Details: normal to inspection, normal capillary refill, neuromotor exam normal, neurosensory exam normal and normal ROM of fingers Psych Mental Status: mental status grossly normal Affect: normal affect Thought process: Normal thought process present Medical Decision Making Medical Decision Making MDM Narrative: Patient is a 68-year-old Uzbek speaking female presenting to the emergency department stating that she feels she accidentally injected her Trulicity in to her left index finger earlier this morning. On exam patient is awake, A+Ox3, VS WNL, afebrile, normal neurological exam without focal deficits, physical exam findings as above. Given reported symptoms and physical exam findings, initial differential includes hypoglycemia, vascular injury. POC glucose in the ED within normal limits. Case discussed with Dr. Jeffries who agrees patient is stable for discharge home. Discussed with patient that she should not self-administer her Trulicity without speaking to her PCP and receiving proper training. Also instructed patient to monitor blood glucose levels closely this week and contact PCP with abnormal readings or return to ED if necessary. All other return precautions discussed. Patient verbalized understanding of and agreement with plan. Differential Diagnosis Differential Diagnoses: The differential diagnosis associated with the presentation includes As per [facility]. Lab Data [facility] Lab Attestation statement: I reviewed the patient's lab results. normal blood glucose External Record Review External record reviewed: Inpatient record, Office record and Outpatient record Chronic Conditions Patient?s care impacted by: Diabetes Discharge Plan Discharge Clinical Impression: Accidental medication error Patient Disposition: Home, Self-Care Additional Instructions: Usted fue evaluado en el departamento de emergencias hoy despu?s de posiblemente administrarle accidentalmente un medicamento en boss dedo. Boss examen f?sico en el departamento de emergencias de hoy fue tranquilizador. Es importante que octavio un seguimiento con boss proveedor de atenci?n primaria para informarle lo que sucedi? hoy. No tome ninguna dosis adicional de Trulicity esta semana. Controle de cerca alma niveles de glucosa en audi esta semana y comun?quese con boss PCP o regrese al departamento de emergencias con lecturas anormalmente altas o bajas. Controle boss dedo diariamente para detectar cualquier nuevo enrojecimiento, hinchaz?n, entumecimiento u hormigueo, otro cambio de color o cualquier otro s?ntoma preocupante. Prescriptions: No Action (DME) FreeStyle Test Strip See Rx Instructions .ROUTE .MEDSUPPLY Qty: 50 11RF Rx Instructions: twice a day blood sugar diagnostic [FreeStyle Lite Strips] Strip 1 strip miscellaneous DAILY Qty: 100 0RF cetirizine 10 mg tablet 10 mg PO DAILY PRN (Reason: for allergies) Qty: 30 0RF lisinopril 20 mg tablet 20 mg PO DAILY 30 Days Qty: 30 12RF rosuvastatin 40 mg tablet 40 mg PO DAILY Qty: 30 2RF amlodipine 5 mg tablet 5 mg PO DAILY 30 Days Qty: 30 12RF lancets [TRUEplus Lancets] 33 gauge misc 33 gauge miscellaneous BID Qty: 100 10RF meclizine 25 mg tablet 25 mg PO TID PRN (Reason: dizziness) 30 Days Qty: 90 0RF venlafaxine 150 mg capsule,extended release 24hr 150 mg PO DAILY 30 Days Qty: 30 3RF Trulicity 0.75 mg/0.5 mL pen injector 0.75 mg subcut QWEEK Qty: 2 2RF hydroxyzine HCl 25 mg tablet 25 mg PO BID PRN (Reason: anxiety) Qty: 30 0RF clonazepam 0.5 mg tablet 0.5 mg PO BID PRN (Reason: anxiety) 15 Days Qty: 30 0RF zolpidem 10 mg tablet 10 mg PO BEDTIME PRN (Reason: insomnia) 30 Days Qty: 30 0RF hydrochlorothiazide 50 mg tablet 12.5 mg PO DAILY omeprazole 20 mg capsule,delayed release(DR/EC) 20 mg PO DAILY Qty: 30 2RF Print Language: Uzbek
[2023-05-31 15:06] LABS: Glucose, Whole Blood 189 mg/dL (60-115)
== END 2023-05-31 15:17 | disposition home or self-care (01) ==
PROVIDERS: Emergency Provider Emergency Medicine; PCP Internal Medicine Geriatric Medicine
DX: T38.3X1A Poisoning by insulin and oral hypoglycemic [antidiabetic] drugs, accidental (unintentional), initial encounter (principal); Y92.9 Unspecified place or not applicable; E11.9 Type 2 diabetes mellitus without complications; I10 Essential (primary) hypertension; Z79.85 Long-term (current) use of injectable non-insulin antidiabetic drugs; Z79.899 Other long term (current) drug therapy
CPT/HCPCS: 82947; 99282; 99283

== ENCOUNTER 2023-10-30 12:55 | Outpatient (AMB) | payer MEDICARE, MEDICAID, SELFPAY ==
--- NOTE | 2023-10-30 13:03 | MHC.PC.OV ---
Vital Signs 10/30/23 13:04 Height 5 ft 2 in Weight 161 lb BMI 29.4 BP 138/64 Blood Pressure Location Lt brachial Position Sitting Intake Visit Reasons: Transferring of care/ medications Intake Note: Patient here re-establishing care/ medication Poker Machine Attendant Required: No Accompanied by: Self / Same As Patient Allergies propranolol [PROPRANOLOL] Allergy (Intermediate, Verified 10/30/23 13:27) STOMACHE PAIN gabapentin [GABAPENTIN] Allergy (Mild, Verified 10/30/23 13:27) RASH/PRURITUS, rash escitalopram Allergy (Unknown, Verified 10/30/23 13:27) headache metoprolol Allergy (Unknown, Verified 10/30/23 13:27) dizziness pravastatin [PRAVASTATIN] Allergy (Unknown, Verified 10/30/23 13:27) SOB, STOMACH PAIN, stomach pain propanolol Allergy (Unknown, Uncoded 10/30/23 13:27) dyspnea Medication List - Last Reconciled 10/30/23 by Kathleen Sharma MD amlodipine 5 mg PO DAILY 30 days blood sugar diagnostic (FreeStyle Lite Strips) 1 strip miscellaneous DAILY blood sugar diagnostic (FreeStyle Test strips) twice a day clonazepam 0.5 mg PO BID PRN 15 days clotrimazole 1% 1 appl topical BID 4 weeks dulaglutide (Trulicity) 0.75 mg (0.5 mL) subcut QWEEK hydrochlorothiazide 12.5 mg PO DAILY hydroxyzine HCl 25 mg PO BID PRN lancets (TRUEplus Lancets) 33 gauge miscellaneous BID lisinopril 20 mg PO DAILY 30 days meclizine 25 mg PO TID PRN 30 days omeprazole 20 mg PO DAILY rosuvastatin 40 mg PO DAILY venlafaxine ER 150 mg PO DAILY 30 days zolpidem 10 mg PO BEDTIME PRN 30 days Tobacco use date assessed: 10/30/23 Fall risk assessment: No Falls in past year Last assessed Fall Risk: 10/30/23 Dental Screening Dental Screen Date: 10/30/23 Did you have a dental visit in the last 12 months?: No Did you have a dental problem in the last 6 months where you did not have access to dental care?: No Was dental information given to patient?: Patient has dentist HPI HPI Comments History of Present Illness Details This is a 68-year-old female with diabetes mellitus type 2, hypertension, hyperlipidemia and mild major depression that comes today for follow-up on her conditions. She declined receiving clonazepam and zolpidem from Dr. Jovanni Sanon in which by [facility] last refill was September 2023. Also declines ever changing to Dr. Ramsey and been a patient of [facility]. A1c slightly elevated and I will increase Trulicity and restart her on metformin but only once a day due to abdominal discomfort. Blood pressure stable. Lipid panel was order and her LDL goal should be less than 70. She does have depression but she avidly declines wanting to go to a psychiatrist ever. I do not feel comfortable refilling clonazepam or zolpidem. She will keep on the same dose of venlafaxine. [facility] Medical History (Updated 10/30/23 @ 13:40 by Kathleen Sharma MD) Obesity (BMI 30-39.9) GERD without esophagitis Depression Anxiety Pure hypercholesterolemia Benign essential hypertension Unsteady gait Dizziness Headache Cholecystectomy planned Arthritis Diabetes mellitus Lower back pain Hypertension UTI (urinary tract infection) Insomnia Surgical History S/P JESSA (total abdominal hysterectomy) History of laparoscopic cholecystectomy History of appendectomy Family History Father Sepsis Diabetes Mother Diabetes Hypertension Social History Housing: Apartment Alcohol intake: never Patient Tobacco Use Status: Never used Tobacco e-Cigarette/Vaping Use: Never Used Second Hand Smoke Exposure: No service: No Current occupational status: unemployed Current occupation: right handed Cognitive needs: No Hearing needs: No Vision needs: Yes Questionnaire PHQ-9 Over the last 2 weeks, how often have you been bothered by any of the following problems? 1. Little interest or pleasure in doing things: more than half the days 2. Feeling down, depressed, or hopeless: more than half the days 3. Trouble falling or staying asleep, or sleeping too much: not at all 4. Feeling tired or having little energy: not at all 5. Poor appetite or overeating: several days 6. Feeling bad about yourself - or that you are a failure or have let yourself or your family down: several days 7. Trouble concentrating on things, such as reading the newspaper or watching television: several days 8. Moving or speaking so slowly that other people could have noticed. Or the opposite - being so fidgety or restless that you have been moving around a lot more than usual: several days 9. Thoughts that you would be better off or of hurting yourself in some way: not at all Total score: 8 Depression Screening Interpretation: Positive Depression Screening Follow-up: Existing condition, In treatment and Follow-up Visit Requested Depression Screening Done: Yes 21114 - PHQ-9 Billing: Yes Source: Developed by Drs. Richard Huertas, Mell Cruz, Mitul Taylor and colleagues, with an educational aubree from [employer]. Thrive Questionnaire Date Thrive assessed: 10/30/23 I am a: Patient What is your living situation today?: I have a steady place to live Within the past 12 months, did the food you bought not last and you didn't have the money to get more?: Never true Within the past 12 months, did you worry whether your food would run out before you got money to buy more?: Never true Do you have trouble paying for medicines?: No Do you have trouble getting transportation to medical appointments?: No Do you have trouble paying your heating and electricity bill?: No Do you have trouble taking care of your child, family member or friend?: No Do you have trouble with day-to-day activities such as bathing, preparing meals, shopping, managing finances, etc.?: No Are you currently unemployed and looking for a job?: No Are you interested in more education?: No Please select the resources that you would like help with: None Currently or been in a relationship where the following occur: no concerns reported THRIVE Score: 0 AUDIT C Alcohol Use Questionnaire (AUDIT-C) 1. How often do you have a drink containing alcohol?: Never Total Score: 0 ELMER-7 AMB Questionnaire ELMER-7 Date ELMER - 7 assessed: 10/30/23 Feeling nervous, anxious, or on edge: 3 = Nearly every day Not being able to stop or control worryin = Several days Worrying too much about different things: 2 = More than half the days Trouble relaxin = Several days Being so restless that it is hard to sit still: 1 = Several days Becoming easily annoyed or irritable: 2 = More than half the days Feeling afraid as if something awful might happen: 2 = More than half the days Total ELMER-7 score (0-4 normal; 5-9 mild; 10-14 moderate; 15-21 severe): 12 Source: Developed by Drs. Richard Huertas, Mell Cruz, Mitul Taylor and colleagues, with an educational aubree from [employer]. ELMER-7 Assessment Billing ELMER-7 Assessment Tool: ELMER-7 Assessment 63899 Review of Systems Const All systems reviewed & are unremarkable except as noted in HPI and below Card Denies chest pain at rest, Denies chest pain with activity, Denies edema, Denies irregular heart rhythm, Denies claudication, Denies dyspnea, Denies dyspnea on exertion, Denies orthopnea, Denies paroxysmal nocturnal dyspnea and Denies slow heart rate Resp Denies cough, Denies dyspnea and Denies dyspnea on exertion Physical exam (Primary Care) Vital Signs: Last Vital Signs BP 138/64 10/30/23 13:04 BMI result Body Mass Index 29.4 Tobacco/Smoking Status: Tobacco use Status Tobacco use date assessed 10/30/23 10/30/23 13:20 Patient Tobacco Use Status Never used Tobacco 10/30/23 13:05 e-Cigarette/Vaping Use Never Used 10/30/23 13:20 PHQ-9: PHQ-9 Score PHQ-9: Total score 8 10/30/23 13:24 Depression Screening Interpretation: Positive Depression Screening Follow-up: Existing condition, In treatment and Follow-up Visit Requested Thrive Assessment: Date of Thrive Assessment Date Thrive assessed 10/30/23 10/30/23 13:20 Currently or been in a relationship where the following occur: no concerns reported Resp Effort & Inspection: normal respiratory effort Auscultation: clear to auscultation bilaterally Cardio Jugular venous distension: no JVD Rate: regular rate Rhythm: regular rhythm Heart sounds: S1 normal heart sound present and S2 normal heart sound present Extrem General: Yes full ROM Results AMB Hemoglobin A1c AMB Hemoglobin A1c 7.3 % Last Edit by MOY Meng on 10/30/23 13:26 Assessment and Plan Assessment & Plan (1) Mild major depression: Code(s): F32.0 - Major depressive disorder, single episode, mild Plan: Continue venlafaxine. Follow-up with me in 6 months. 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 Start metformin. A1c goal is equal or less than 7%. (3) Benign essential hypertension: Code(s): I10 - Essential (primary) hypertension Plan: Continue lisinopril and amlodipine. Blood pressure goal is equal or less than 130/80. (4) Pure hypercholesterolemia: Code(s): E78.00 - Pure hypercholesterolemia, unspecified Plan: Continue statins. Repeat lipid panel. LDL goal is less than 70. Orders: Orders AMB Hemoglobin A1c Today E11.9 - Type 2 diabetes mellitus without complications Lipid Panel Today E78.5 - Hyperlipidemia, unspecified Microalbumin, Random (w Creat) Today E11.9 - Type 2 diabetes mellitus without complications Comprehensive Moose. Panel Fast Today E78.00 - Pure hypercholesterolemia, unspecified Vitamin D 25-OH Total Today E55.9 - Vitamin D deficiency, unspecified Medications: New dulaglutide (Trulicity) 1.5 mg (0.5 mL) subcut QWEEK 90 days 6.5 mL 1RF E11.9 - Type 2 diabetes mellitus without complications metformin 500 mg PO DAILY 90 days 90 tabs 1RF Refilled clotrimazole 1% 1 appl topical BID 4 weeks 15 grams 0RF Discontinued clonazepam Discontinued Reason: Patient Completed Course 0.5 mg PO BID 15 days PRN 30 tabs 0RF anxiety dulaglutide (Trulicity) Discontinued Reason: Patient Completed Course 0.75 mg (0.5 mL) subcut QWEEK 2 mL 2RF E11.9 - Type 2 diabetes mellitus without complications zolpidem Discontinued Reason: Patient Completed Course 10 mg PO BEDTIME 30 days PRN 30 tabs 0RF insomnia G47.00 - Insomnia, unspecified Coding Level of Care Code Est Pt Level 4 (62909) Complex EM visit Add On G2211 Diagnoses Mild major depression F32.0 Type 2 diabetes mellitus without complication, without long-term current use of insulin E11.9 Diabetes mellitus type: type 2 Diabetes mellitus watermelon harvesting supervisor insulin use: without watermelon harvesting supervisor use Diabetes mellitus complication status: without complication Benign essential hypertension I10 Pure hypercholesterolemia E78.00 Additional Codes ELMER-7 Assessment Billing - ELMER-7 Assessment Tool: ELMER-7 Assessment 01255 ([id number]) Time Spent (min) 25
[2023-10-30 13:04] VITALS: BP 138/64; BMI 29.4
== END 2023-10-30 13:41 | disposition home or self-care (01) ==
PROVIDERS: PCP Internal Medicine; Visit Provider Internal Medicine
DX: E11.9 Type 2 diabetes mellitus without complications (principal); F32.0 Major depressive disorder, single episode, mild; I10 Essential (primary) hypertension; E78.00 Pure hypercholesterolemia, unspecified
CPT/HCPCS: 83036; 99214; G2211